=== PATIENT | male | born 1940 | race Caucasian/White ===

== ENCOUNTER → 2017-05-08 17:37 | Outpatient (CLI) | payer MEDICARE | END | disposition home or self-care (01) | LOC: D.LABREF 17:37 | DX: L03.111 Cellulitis of right axilla (principal); L02.611 Cutaneous abscess of right foot ==

== ENCOUNTER → 2017-08-16 13:49 | Outpatient (CLI) | payer MEDICARE ==
[2017-08-16 14:06] LABS: BASOPHILS 0.4 % (0-2); EOSINOPHILS 1.7 % (0-7); IMMATURE GRANULOCYTES 0.4 % (0-5); LYMPHOCYTES 15.3 % (15-50); MCH 30.3 pg (26.0-34.0); MCHC 31.6 g/dL (31.0-37.0); MEAN PLATELET VOLUME 10.1 fL (7.4-10.4); MONOCYTES 10.2 % (2-11); PLATELET COUNT 94 10x3/uL (130-400); RBC 3.96 10x6/uL (4.20-6.10); RDW 15.1 % (11.5-14.5); WBC 4.7 10x3/uL (4.8-10.8)
[2017-08-16 14:28] LABS: ALBUMIN 3.6 g/dL (3.4-5.0); ALKALINE PHOSPHATASE 74 U/L (46-116); ALT (SGPT) 9 U/L (10-68); BILIRUBIN - TOTAL 1.41 mg/dL (0.2-1.3); CALC OSMOLALITY 282 mosm/kg (275-300); CALCIUM 9.1 mg/dL (8.5-10.1); CARBON DIOXIDE 33.4 mmol/L (21.0-32.0); CHLORIDE - SERUM 100 mmol/L (98-107); GLUCOSE 96 mg/dL (74-106); PROTEIN - SERUM 7.2 g/dL (6.4-8.2); SODIUM 139 mmol/L (136-145); UREA NITROGEN 26 mg/dL (7-18); eGFR NON AFRICAN AMERICAN 77 mL/min (90-120)
== END | disposition home or self-care (01) ==
LOC: D.LABREF 13:49
PROVIDERS: Student in an Organized Health Care Education/Training Program
DX: Z51.81 Encounter for therapeutic drug level monitoring (principal); Z79.2 Long term (current) use of antibiotics

== ENCOUNTER 2017-09-19 18:00 | Inpatient (IN) | payer MEDICARE | END 2017-09-21 13:57 | disposition home or self-care (01) | DRG 885 | LOC: D.PSYCH 18:00 | DX: F32.1 Major depressive disorder, single episode, moderate (principal); I42.9 Cardiomyopathy, unspecified; I50.32 Chronic diastolic (congestive) heart failure; K21.9 Gastro-esophageal reflux disease without esophagitis; M19.90 Unspecified osteoarthritis, unspecified site; K22.4 Dyskinesia of esophagus; I11.0 Hypertensive heart disease with heart failure; J44.9 Chronic obstructive pulmonary disease, unspecified; E55.9 Vitamin D deficiency, unspecified; E53.8 Deficiency of other specified B group vitamins; G62.9 Polyneuropathy, unspecified; I48.2 Chronic atrial fibrillation; Z74.09 Other reduced mobility ==